=== PATIENT | female | born 1945 ===

== ENCOUNTER 2017-05-03 07:37 | Day surgery (SDC) | payer MEDICARE, OTHER ==
[2017-05-03] VITALS (9 sets, daily range): BP systolic 109–138; BP diastolic 70–80
[~2017-05-03] VITALS: Ht 162.6 cm; Wt 90.7 kg
[2017-05-03] MEDS ORDERED: SYNTHROID25 MCG ORAL (08:29)
[2017-05-03] MEDS ORDERED: AMLOD-VALSA-HC1 EACH PO (08:29)
[2017-05-03] MEDS ORDERED: CRESTOR10 M2 ORAL (08:29)
[2017-05-03] MEDS ORDERED: [UNRECOGNIZED DRUG - REMARK] PO (08:29)
[2017-05-03] MEDS ORDERED: ASPIR 8181 MG ORAL (08:29)
[2017-05-03] MEDS ORDERED: METOPROLOL SUCC25 MG ORAL (08:29)
[2017-05-03] MEDS ORDERED: RANITIDINE HCL150 M2 PO (08:29)
--- NOTE | 2017-05-03 11:29 | Pre-Procedure Note/Attestation ---
Pre-Procedure Note/Attestation Complete Prior to Procedure Planned Procedure: not applicable Procedure Narrative: Dilation and Curettage hysteroscopy possible polypectomy resection Indications for Procedure Pre-Operative Diagnosis: endometrial hyperplasia Attestation I attest that I discussed the nature of the procedure; its benefits; risks and complications; and alternatives (and the risks and benefits of such alternatives ), prior to the procedure, with the patient (or the patient's legal sales representative facility services). I attest that, if there was a reasonable possibility of needing a blood transfusion, the patient (or the patient's legal sales representative facility services) was given the [facility] standardized written summary, pursuant to the [place] Blood Safety Act ([place] Health and Safety Code # 1645, as amended). I attest that I re-evaluated the patient just prior to the surgery and that there has been no change in the patient's H&P, except as documented below: MARTIN GUPTA May 03, 2017 11:29
[2017-05-03] MEDS ORDERED: fentaNYL 100 mcg/2 mL IV ONE (11:30)
[2017-05-03] MEDS ORDERED: Metoclopramide 10mg/2ml Inj ONE (11:30)
[2017-05-03] MEDS ORDERED: Sterile Water Irrig 1000ml IRRIG ONE (11:30)
[2017-05-03] MEDS ORDERED: ePHEDrine 50mg/ml Inj ONE (11:30)
[2017-05-03] MEDS ORDERED: HYDROmorphone 1mg/ml Carpuject SUBQ PRN (11:30)
[2017-05-03] MEDS ORDERED: LR 1000ml ONE (11:30)
[2017-05-03] MEDS ORDERED: Norco 5mg/325mg tab ORAL PRN (11:30)
[2017-05-03] MEDS ORDERED: Propofol 10mg/ml 20ml IV ONE (11:30)
[2017-05-03] MEDS ORDERED: NS Irrig 1000ml ONE (11:30)
[2017-05-03] MEDS ORDERED: Tylenol #3 tab (300mg/30mg) ORAL PRN (11:30)
[2017-05-03] MEDS ORDERED: Lidocaine 1% MPF 10mg/ml 5ml ONE (11:30)
[2017-05-03] MEDS ORDERED: NS Irrig 1000ml IRRIG ONE (12:07)
--- NOTE | 2017-05-03 12:16 | Brief Operative Note ---
Immediate Post Operative Note Operative Note Pre-op Diagnosis: endometrial hyperplasia Procedure: hysteroscopy dilation and curettage Post-op Diagnosis: same Surgeon: michael Anesthesia: general Specimen: yes Complications: none Condition: stable Estimated Blood Loss: minimal Implant(s) used?: No MARTIN GUPTA May 03, 2017 12:16
[2017-05-03] MEDS ORDERED: fentaNYL 100 mcg/2 mL IV PRN (12:30)
[2017-05-03] MEDS ORDERED: Meperidine 25mg/0.5ml Inj IV PRN (12:30)
--- NOTE | 2017-05-03 12:30 | Immediate Post-Op Evaluation ---
Immediate Post-Op Evalulation Immediate Post-Op Evalulation Procedure: D&C, hysteroscopy Date of Evaluation: May 03, 2017 Time of Evaluation: 12:25 IV Fluids: 300 Blood Pressure Systolic: 141 Blood Pressure Diastolic: 76 Pulse Rate: 92 Respiratory Rate: 14 O2 Sat by Pulse Oximetry: 100 Temperature (Fahrenheit): 99.0 Nausea: No Vomiting: No Complications none Patient Status: awake, reacts, patent Drug: ancef Given Within 1 Hr of Incision: Yes Time Given: 11:25 DEXTER SARAVIA CRNA May 03, 2017 12:30
--- NOTE | 2017-05-03 12:32 | Anethesia Preoperative Eval ---
Anesthesia Pre-op PMH/ROS General Date of Evaluation: May 03, 2017 Time of Evaluation: 11:25 Anesthesiologist: filemon ASA Score: ASA 3 Mallampati Score Class I : Soft palate, uvula, fauces, pillars visible Class II: Soft palate, uvula, fauces visible Class III: Soft palate, base of uvula visible Class IV: Only hard plate visible Mallampati Classification: Class III Surgeon: michael Diagnosis: endometrial hypoplasia Surgical Procedure: D and C and hysteroscopy Anesthesia History: none Family History: no anesthesia problems Allergies: Coded Allergies: PENICILLIN G (Verified Allergy, Mild, 07/19/11) Medications: see eMAR Past Medical History Cardiovascular: Reports: CAD, HTN, arrhythmia Pulmonary: Denies: COPD, JENNIFER, asthma, other Gastrointestinal/Genitourinary: Denies: CRI, ESRD, GERD, other Neurologic/Psychiatric: Denies: CVA, TIA, dementia, depression/anxiety, other Endocrine: Reports: hypothyroidism HEENT: Denies: KENAITZE (L), KENAITZE (R), cataract (L), cataract (R), glaucoma, other Other: obesity PSxH Narrative: mitral valve replacement in 2016 Anesthesia Pre-op Phys. Exam Physician Exam Last Vital Signs Date Time Temp Pulse Resp B/P Pulse Ox O2 Delivery O2 Flow Rate FiO2 05/03/17 12:27 99.2 91 14 134/76 99 Simple Mask 6.0 Constitutional: NAD Neurologic: CN 2-12 intact Cardiovascular: RRR Respiratory: CTA Gastrointestinal: S/NT/ND Airway Exam Mallampati Classification 3 Mallampati Score: Class III ROM: full Dentures: no lower, no upper Anesthesia Pre-op A/P Labs elevated liver enzymes, otherwise, normal Studies Pre-op Studies: EKG - sr Risk Assessment & Plan Plan: general Status Change Before Surgery: No Pre-Antibiotics Drug: ancef Given Within 1 Hr of Incision: Yes Time Given: 11:25 DEXTER SARAVIA CRNA May 03, 2017 12:32
--- NOTE | 2017-05-03 12:34 | 48 Hour Post Anesthesia Eval ---
Post Anesthesia Evaluation Procedure: D&C, hysteroscopy Date of Evaluation: May 03, 2017 Time of Evaluation: 12:33 Blood Pressure Systolic: 138 0: 75 Pulse Rate: 89 Respiratory Rate: 14 Airway: patent Nausea: No Vomiting: No Hydration Status: adequate Mental Status/LOC: patient returned to baseline Follow-up Care/Observations: none Follow-up care needed: N/A DEXTER SARAVIA CRNA May 03, 2017 12:33
--- NOTE | 2017-05-03 19:46 | Operative Note - Dictated ---
DATE OF OPERATION: 05/03/2017 PREOPERATIVE DIAGNOSES: 1. Postmenopausal bleeding. 2. Endometrial hyperplasia. POSTOPERATIVE DIAGNOSES: 1. Postmenopausal bleeding. 2. Atrophic endometrium. SURGEON: Peggy Ocampo M.D. [employer]: None. ANESTHESIA: General. ESTIMATED BLOOD LOSS: Minimal. PROCEDURE IN DETAIL: After ensuring informed consent, the patient was taken to the operating room, where general anesthesia was induced. The patient was sterilely prepped and draped. In and out catheterization was performed. Weighted speculum was placed in the vagina. Cervix was dilated first with a lacrimal probe and then was grasped dilators. The cervical os was very anterior. Finally, hysteroscope was passed into the uterine cavity. Uterine cavity was distended with normal saline and uterine cavity appeared to be without lesion with atrophic endometrium. Hysteroscope was withdrawn and fractional curettage was performed. At the end of the procedure, hysteroscope was placed again inside the uterine cavity. Uterine cavity appeared to be within normal limits and hysteroscope was again withdrawn. Fluid was allowed to escape. Excellent hemostasis was assured on the outer cervix. All instrument and lap counts were correct x2. The patient was taken to the recovery area and extubated in stable condition. Peggy Ocampo M.D. DR: KENNA JOB#: [id number] CC:
[2017-05-03] MEDS ORDERED: D5 1/2NS 1,000 ML IV SCH (20:00)
== END 2017-05-03 13:45 | disposition home or self-care (01) ==
LOC: SUR 07:37
DX: N95.0 Postmenopausal bleeding (principal); N85.00 Endometrial hyperplasia, unspecified; N85.8 Other specified noninflammatory disorders of uterus; E03.9 Hypothyroidism, unspecified; I10 Essential (primary) hypertension; I25.10 Atherosclerotic heart disease of native coronary artery without angina pectoris; I49.9 Cardiac arrhythmia, unspecified; Z95.2 Presence of prosthetic heart valve; E66.9 Obesity, unspecified; Z88.0 Allergy status to penicillin
CPT/HCPCS: 58558; J0690; J2405; J2704; J2765; J3010; J7120; 94003; 94150